=== PATIENT | male | born 1980 | race Caucasian/White ===

== ENCOUNTER 2017-06-30 12:52 | Emergency (ER) | payer BC ==
[~2017-06-30] VITALS: Ht 165.1 cm; Wt 101.5 kg
[2017-06-30 12:57] VITALS: Ht 165.1 cm; Wt 101.5 kg
[2017-06-30] MEDS ORDERED: predniSONE 20 MG TAB PO STA (13:13)
[2017-06-30] MEDS ORDERED: DIPHENHYDRAMINE 50 MG CAP PO STA (13:13)
[2017-06-30] MEDS ORDERED: FAMOTIDINE 20 MG TAB PO STA (13:13)
[2017-06-30] MEDS ORDERED: EPINEPHrine 1 MG INJ IM STA (13:13)
[2017-06-30] MEDS ORDERED: PRED20TA PO (14:10)
[2017-06-30] MEDS ORDERED: EPIN0.3P4 INJ (14:10)
[2017-06-30] MEDS ORDERED: BEN25 PO (14:10)
[2017-06-30 14:56] VITALS: BP 111/74; PULSE 88; RESP 18
--- NOTE | 2017-06-30 15:53 | ERD ---
ER Documentation Chief Complaint Date/Time DATE: 06/30/17 TIME: 15:50 Chief Complaint swollen uvula since this am happened before had adrenaline shot per pt HPI Patient is a 36-year-old male with a history of shrimp allergy who presents with throat swelling. He said the swelling started this morning. It is actually swelling of the uvula. He said that he is having trouble swallowing and breathing. He has had no treatment as of yet. He had a similar event happen in the past where he required epinephrine but that was after he ate shrimp. He did not eat any shrimp recently. Upon review of old medical records this is the patient's first visit to the ER. He does not currently have a primary doctor. ROS All systems reviewed and are negative except as per history of present illness. Medications Home Meds Active Scripts Diphenhydramine Hcl* (Benadryl*) 25 Mg Cap, 25 MG PO Q6 Y for ITCHING/RASH, #30 TAB Prov:DMITRY ALEXANDRA MD 06/30/17 Prednisone* (Prednisone*) 20 Mg Tab, 60 MG PO DAILY for 4 Days, TAB Prov:DMITRY ALEXANDRA MD 06/30/17 Epinephrine (Epipen 2-Kayden) 0.3 Mg/0.3 Ml Pen.injctr, 1 EA INJ ONCE Y for ALLERGIC REACTION, #1 EA Prov:DMITRY ALEXANDRA MD 06/30/17 Allergies Allergies: Coded Allergies: shrimp (Verified Allergy, Intermediate, 06/30/17) PMhx/Soc Medical and Surgical Hx: pt denies Medical Hx, pt denies Surgical Hx Hx Alcohol Use: No (occasionally every 3 months) 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 Resp: Clear to auscultation bilaterally Cardio: Regular rate and rhythm, no murmurs Abd: Soft, non tender, non distended. Normal bowel sounds Skin: No petechiae or rashes Back: No midline or flank tenderness Ext: No cyanosis, or edema Neur: Awake and alert Psych: Normal Mood and Affect Results 24 hrs Current Medications Medications (Trade) Dose Ordered Sig/Rodri Route PRN Reason Start Time Stop Time Status Last Admin Dose Admin Diphenhydramine HCl (Benadryl) 50 mg ONCE STAT PO 06/30/17 13:13 06/30/17 13:14 DC 06/30/17 13:24 Epinephrine (EPINEPHrine) 0.3 mg ONCE STAT IM 06/30/17 13:13 06/30/17 13:14 DC 06/30/17 13:22 Famotidine (Pepcid) 20 mg ONCE STAT PO 06/30/17 13:13 06/30/17 13:14 DC 06/30/17 13:24 Prednisone (Prednisone) 60 mg ONCE STAT PO 06/30/17 13:13 06/30/17 13:14 DC 06/30/17 13:24 Procedures/MDM Smoking Cessation Therapy: Pt. was lectured for greater than 3 minutes on the health risks of continued smoking and the benefits of cessation. Patient is a 36-year-old male with uvular swelling likely from allergic reaction. It is unclear as to what he had a reaction to. He was given epinephrine, prednisone, Pepcid, and Benadryl and feels slightly better. However he still has uvular swelling. I wanted to admit him to the hospital for observation and further treatment but he is refusing. He does not want to stay in the hospital. I did explain and recommend admission but he still wants to leave. I will give him a prescription for EpiPen, prednisone, and Benadryl but I told him he should return immediately if he feels any worse. The patient should follow-up with a primary doctor the local clinics and I did encourage retirement benefits specialist follow-up for skin testing. He can return for any worsening symptoms. Critical Care: Time: 35 minutes excluding all billable procedures. Treatments/Evaluations: Close monitoring and treatment of unstable vital signs, cardiorespiratory, and neurologic status, while maintaining tight balance of fluid, respiratory, and cardiac interventions. Departure Diagnosis: Primary Impression: Uvular swelling Additional Impressions: Allergic reaction Encounter type: initial encounter Qualified Code: T78.40XA - Allergic reaction, initial encounter Sore throat Condition: Fair Patient Instructions: Uvulitis Referrals: [facility] YOU HAVE RECEIVED A MEDICAL SCREENING EXAM AND THE RESULTS INDICATE THAT YOU DO NOT HAVE A CONDITION THAT REQUIRES URGENT TREATMENT IN THE EMERGENCY DEPARTMENT. FURTHER EVALUATION AND TREATMENT OF YOUR CONDITION CAN WAIT UNTIL YOU ARE SEEN IN YOUR DOCTORS OFFICE WITHIN THE NEXT 1-2 DAYS. IT IS YOUR RESPONSIBILITY TO MAKE AN APPOINTMENT FOR FOLOW-UP CARE. IF YOU HAVE A PRIMARY DOCTOR --you should call your primary doctor and schedule an appointment IF YOU DO NOT HAVE A PRIMARY DOCTOR YOU CAN CALL OUR PHYSICIAN REFERRAL HOTLINE AT IF YOU CAN NOT AFFORD TO SEE A PHYSICIAN YOU CAN CHOSE FROM THE FOLLOWING [facility] [id number] [facility] [address] [facility] [facility] [address] [facility] [address] [facility] [facility] [facility] [address] [facility] [facility]. [address] Additional Instructions: Call your primary care doctor TOMORROW for an appointment during the next 1-2 days.See the doctor sooner or return here if your condition worsens before your appointment time. DMITRY ALEXANDRA MD Jun 30, 2017 15:53
== END 2017-06-30 15:10 | disposition home or self-care (01) ==
LOC: E/R 12:52
DX: K13.79 Other lesions of oral mucosa (principal); J02.9 Acute pharyngitis, unspecified; Z87.891 Personal history of nicotine dependence
CPT/HCPCS: 96372; 99291; J0171; J7512; Z7610

== ENCOUNTER 2017-08-12 00:22 | Emergency (ER) | payer BC ==
[~2017-08-12] VITALS: Ht 177.8 cm; Wt 103.7 kg
[~2017-08-12 00:22] MED LIST: BEN25 PO; EPIN0.3P4 INJ; PRED20TA PO
[2017-08-12 00:26] VITALS: Ht 177.8 cm; Wt 103.7 kg
--- NOTE | 2017-08-12 00:33 | ERD ---
ER Documentation Chief Complaint Chief Complaint pressure like chest pain since1 hour ago, pain increases on deep breathing HPI The patient is a 36-year-old male, presenting to the ER because of left-sided chest pressure that began about 12 AM, worse with respiration. He has intermittent cough for 1 day, denies chills, facial pain, chest pain with exertion/vomiting/diaphoresis, denied dyspnea, abdominal pain, vomiting, dysuria , diarrhea, constipation. He does not smoke nor drink Past medical history: Asthma Past surgical history: Right rotator cuff, right hip ROS All systems reviewed and are negative except as per history of present illness. Medications Home Meds Discontinued Scripts Diphenhydramine Hcl* (Benadryl*) 25 Mg Cap, 25 MG PO Q6 Y for ITCHING/RASH, #30 TAB Prov:DMITRY ALEXANDRA MD 06/30/17 Prednisone* (Prednisone*) 20 Mg Tab, 60 MG PO DAILY for 4 Days, TAB Prov:DMITRY ALEXANDRA MD 06/30/17 Epinephrine (Epipen 2-Kayden) 0.3 Mg/0.3 Ml Pen.injctr, 1 EA INJ ONCE Y for ALLERGIC REACTION, #1 EA Prov:DMITRY ALEXANDRA MD 06/30/17 Allergies Allergies: Coded Allergies: shrimp (Unverified Allergy, Intermediate, 08/12/17) martin (Unverified Allergy, Unknown, 08/12/17) egg (Unverified Allergy, Unknown, 08/12/17) PMhx/Soc Hx Alcohol Use: No (occasionally every 3 months) 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 Head: Atraumatic.Anxious Eyes: Normal Conjunctiva. ENT: Normal External Ears, Nose and Mouth. Neck: Full range of motion. No meningismus. Resp: Clear to auscultation bilaterally. Cardio: Regular Tachycardic Abd: Soft, non distended, normal bowel sounds, non tender. Skin: No petechiae or rashes. Back: No midline or flank tenderness. Ext: No cyanosis, or edema. Neur: Awake and alert. No focal deficit Psych: Normal Mood and Affect. Result Diagram: 08/12/17 0045 08/12/17 0045 Results 24 hrs Laboratory Tests Test 08/12/17 00:45 08/12/17 02:54 White Blood Count 15.410^3/ul Red Blood Count 4.3710^6/ul Hemoglobin 12.7g/dl Hematocrit 38.3% Mean Corpuscular Volume 87.6fl Mean Corpuscular Hemoglobin 29.1pg Mean Corpuscular Hemoglobin Concent 33.2g/dl Red Cell Distribution Width 12.4% Platelet Count 25881^3/UL Mean Platelet Volume 9.9fl Neutrophils % 72.1% Lymphocytes % 18.3% Monocytes % 7.7% Eosinophils % 1.2% Basophils % 0.2% Nucleated Red Blood Cells % 0.0/100WBC Neutrophils # 11.210^3/ul Lymphocytes # 2.810^3/ul Monocytes # 1.210^3/ul Eosinophils # 0.210^3/ul Basophils # 0.010^3/ul Nucleated Red Blood Cells # 0.010^3/ul Prothrombin Time 12.9Sec Prothrombin Time Ratio 1.0 INR International Normalized Ratio 0.97 Activated Partial Thromboplast Time 34.0Sec D-Dimer 220.00ng/ml D-Dimer Comment Sodium Level 139mmol/L Potassium Level 3.9mmol/L Chloride Level 100mmol/L Carbon Dioxide Level 30mmol/L Anion Gap 13 Blood Urea Nitrogen 13mg/dl Creatinine 0.84mg/dl Glucose Level 109mg/dl Lactic Acid Level 1.0mmol/L Calcium Level 9.1mg/dl Total Bilirubin 0.3mg/dl Direct Bilirubin 0.00mg/dl Indirect Bilirubin 0.3mg/dl Aspartate Amino Transf (AST/SGOT) 18IU/L Alanine Aminotransferase (ALT/SGPT) 29IU/L Alkaline Phosphatase 100IU/L Troponin I < 0.012ng/ml Total Protein 7.6g/dl Albumin 4.0g/dl Globulin 3.60g/dl Albumin/Globulin Ratio 1.11 Ethyl Alcohol Level mg/dl Bedside Urine pH (LAB) 7.0 Bedside Urine Protein (LAB) Negative Bedside Urine Glucose (UA) Negative Bedside Urine Ketones (LAB) Negative Bedside Urine Blood Negative Bedside Urine Nitrite (LAB) Negative Bedside Urine Leukocyte Esterase (L Negative Current Medications Medications (Trade) Dose Ordered Sig/Rodri Route PRN Reason Start Time Stop Time Status Last Admin Dose Admin Sodium Chloride (NS) 3,210 ml BOLUS OVER 2 HOURS STAT IV* 08/12/17 00:42 08/12/17 00:46 DC 08/12/17 01:26 Morphine Sulfate (morphine) 4 mg ONCE STAT IV 08/12/17 00:42 08/12/17 00:46 DC 08/12/17 01:26 Ondansetron HCl (Zofran Inj) 4 mg ONCE STAT IV 08/12/17 00:42 08/12/17 00:46 DC 08/12/17 01:26 Acetaminophen (Tylenol Tab) 650 mg ONCE ONCE PO 08/12/17 01:00 08/12/17 01:01 DC 08/12/17 01:26 Hydromorphone HCl 1 mg 1 mg ONCE ONCE IV 08/12/17 02:22 08/12/17 02:23 DC 08/12/17 02:38 Ceftriaxone Sodium 50 ml @ 100 mls/hr ONCE ONCE IVPB 08/12/17 02:30 08/12/17 02:59 DC 08/12/17 02:39 Azithromycin 250 ml @ 250 mls/hr ONCE ONCE IVPB 08/12/17 02:30 08/12/17 03:29 DC 08/12/17 02:39 Sodium Chloride (NS) 100 ml @ ud STK-MED ONCE .ROUTE 08/12/17 03:03 08/12/17 03:04 DC 08/12/17 03:23 Iohexol (Omnipaque 300mg/ ml) 150 ml STK-MED ONCE .ROUTE 08/12/17 03:03 08/12/17 03:04 DC 08/12/17 03:23 Procedures/[place] [id number] Radiology Main Line: [phone] DIAGNOSTIC IMAGING REPORT Patient: HAI MACKEY : 1980 Age: 36 Sex: M MR #: [id number] DOS: 08/12/17 0042 Ordering MD: DENIZ LARA MD Location: E/R Room/Bed: PROCEDURE: XR Chest. CLINICAL INDICATION: Sepsis. TECHNIQUE: Single frontal chest x-ray. COMPARISON: None. FINDINGS: The cardiomediastinal silhouette is unremarkable. There is no congestive heart failure.. There is a 2.7 x 2.9 cm mass-like density in the perihilar left mid lung field.. There is no pleural effusion. There is no pneumothorax. The osseous structures are unremarkable. IMPRESSION: Focal infiltrate versus mass in the left mid lung field. Neoplasm or abscess cannot be excluded. Recommend correlation with contrast enhanced CT of the chest. RPTAT: HMVK .Deniz Tinoco MD, MD Date Time Electronically viewed and signed by .Deniz Tinoco MD, MD on 08/12/2017 01:26 .K/ CC: DENIZ LARA MD [place] [id number] Radiology Main Line: [phone] DIAGNOSTIC IMAGING REPORT Patient: HAI MACKEY : 1980 Age: 36 Sex: M MR #: [id number] DOS: 08/12/17 0152 Ordering MD: DENIZ LARA MD Location: E/R Room/Bed: PROCEDURE: CT chest with contrast. CLINICAL INDICATION: X-ray abnormality. TECHNIQUE: CT of the chest was performed utilizing axial images with reconstructions in sagittal and coronal planes following the intravenous administration of 100 cc Omnipaque 300 contrast. The administered radiation dose is CTDI 16.4 mGy, DLP 639 mGy-cm. One or more of the following dose reduction techniques were used: automated exposure control, adjustment of the mA and/or kV according to patient size and/or use of iterative reconstruction technique. COMPARISON: No pertinent prior examinations are submitted for comparison. FINDINGS: Chest: There is focal patchy airspace opacity within the anterior aspect of the left upper lobe. No pleural effusions are seen. The tracheobronchial tree is unremarkable. The heart is normal in size. No pericardial effusion is seen. There is no evidence of mediastinal or hilar adenopathy. Visualized Upper abdomen: Unremarkable. Osseous structures: Unremarkable. IMPRESSION: There is patchy airspace opacity in the anterior aspect of the left upper lobe, likely due to mild pneumonia. RPTAT: HIKT .Rayo Madrigal MD, MD Date Time Electronically viewed and signed by .Rayo Madrigal MD, MD on 08/12/2017 03:38 .T/ CC: DENIZ LARA MD EKG: Read by emergency physician Rate/Rhythm: Normal Sinus Rhythm 99 beats/min QRS, ST, T-waves: No ST elevation, no T inversion, Incomplete right bundle branch block Impression: Abnormal EKG MEDICAL MAKING DECISION: The patient is a 36-year-old male, presenting with acute pneumonia. He was treated with normosaline 30 mL/kg IV for clinical dehydration, morphine 4 mg IV and Dilaudid 1 mg IV for pain, Zofran formulary IV for nausea, Tylenol 650 mg p.o. for fever, Rocephin IV and Zithromax IV for acute pneumonia with good response. His vital site normalized. He is stable for outpatient follow-up The differential diagnoses considered include but are not limited to asthma, COPD, pneumonia, pulmonary embolus, pleural effusion, congestive heart failure. Departure Diagnosis: Primary Impression: Pneumonia Additional Impression: Anemia Condition: Good Comments He was discharged with Levaquin and Motrin I discussed the findings with the patient. I advised the patient to follow-up with the primary physician in about 1-2 days, sooner if needed and return if any concern. The patient's blood pressure was elevated (>120/80) but appears stable without evidence of hypertension emergency or urgency. The patient was counseled about the risks of hypertension and urged to pursue outpatient monitoring and therapy within a week with their primary care physician. Disclaimer: Inadvertent spelling and grammatical errors are likely due to EHR/ dictation software use and do not reflect on the overall quality of patient care. Also, please note that the electronic time recorded on this note does not necessarily reflect the actual time of the patient encounter. DENIZ LARA MD Aug 12, 2017 00:33
[2017-08-12] MEDS ORDERED: ONDANSETRON 4 MG INJ IV STA (00:42)
[2017-08-12] MEDS ORDERED: SODIUM CHLORIDE 0.9% 1L BAG IV* STA (00:42)
[2017-08-12] MEDS ORDERED: morphine 4 MG/ML VIAL IV STA (00:42)
[2017-08-12] MEDS ORDERED: ACETAMINOPHEN 325 MG TAB PO ONE (01:00)
--- NOTE | 2017-08-12 01:26 | RADRPT ---
PROCEDURE: XR Chest. CLINICAL INDICATION: Sepsis. TECHNIQUE: Single frontal chest x-ray. COMPARISON: None. FINDINGS: The cardiomediastinal silhouette is unremarkable. There is no congestive heart failure.. There is a 2.7 x 2.9 cm mass-like density in the perihilar left mid lung field.. There is no pleural effusion . There is no pneumothorax. The osseous structures are unremarkable. IMPRESSION: Focal infiltrate versus mass in the left mid lung field. Neoplasm or abscess cannot be excluded. Rec ommend correlation with contrast enhanced CT of the chest. RPTAT: HMVK .Deniz Tinoco MD, MD Date Time Electronically viewed and signed by .Deniz Tinoco MD, on 08/12/2017 01:26 .K/
[2017-08-12] MEDS ORDERED: HYDROmorphONE 1 MG/ML SYG IV ONE (02:22)
[2017-08-12] MEDS ORDERED: AZITHROMYCIN 500MG/NS (PMX) 250 ML IVPB ONE (02:30)
[2017-08-12] MEDS ORDERED: CEFTRIAXONE 1 GM/50 ML (PMX) 50 ML IVPB ONE (02:30)
[2017-08-12] MEDS ORDERED: SOD CHLORIDE 0.9% 100 ML ONE (03:03)
[2017-08-12] MEDS ORDERED: IOHEXOL 300MG/ML 150 ML BTL ONE (03:03)
--- NOTE | 2017-08-12 03:38 | RADRPT ---
PROCEDURE: CT chest with contrast. CLINICAL INDICATION: X-ray abnormality. TECHNIQUE: CT of the chest was performed utilizing axial images with reconstructions in sagittal a nd coronal planes following the intravenous administration of 100 cc Omnipaque 300 contrast. The adm inistered radiation dose is CTDI 16.4 mGy, DLP 639 mGy-cm. One or more of the following dose reducti on techniques were used: automated exposure control, adjustment of the mA and/or kV according to pat ient size and/or use of iterative reconstruction technique. COMPARISON: No pertinent prior examinations are submitted for comparison. FINDINGS: Chest: There is focal patchy airspace opacity within the anterior aspect of the left upper lobe. No pleural effusions are seen. The tracheobronchial tree is unremarkable. The heart is normal in size. No pericardial effusion is seen. There is no evidence of mediastinal or hilar adenopathy. Visualized Upper abdomen: Unremarkable. Osseous structures: Unremarkable. IMPRESSION: There is patchy airspace opacity in the anterior aspect of the left upper lobe, likely due to mild p neumonia. RPTAT: HIKT .Rayo Madrigal MD, MD Date Time Electronically viewed and signed by .Rayo Madrigal MD, on 08/12/2017 03:38 .T/
[2017-08-12] MEDS ORDERED: IBUP-1542 PO (03:55)
[2017-08-12] MEDS ORDERED: LEVO750T25 PO (03:55)
[2017-08-12 05:54] VITALS: BP 113/80; PULSE 89; RESP 19; TEMP 99
== END 2017-08-12 05:56 | disposition home or self-care (01) ==
LOC: E/R 00:22
DX: J18.9 Pneumonia, unspecified organism (principal); D64.9 Anemia, unspecified
CPT/HCPCS: 36415; 71010; 71260; 80053; 80306; 80307; 81003; 83605; 84484; 85025; 85378; 85610; 85730; 87040; 87086; 87400; 93005; 96374; 96375; 99285; J0456; J0696; J1170; J2270; J2405; J7030; Q9967; Z7610